=== PATIENT | female | born 1975 | race Caucasian/White ===

== ENCOUNTER → 2020-07-19 10:42 | Outpatient (BNVA) | payer BC, SELFPAY | PROVIDERS: Visit Provider Nurse Practitioner Family | DX: Z20.828 Contact with and (suspected) exposure to other viral communicable diseases (principal) | CPT/HCPCS: 87635 ==

== ENCOUNTER 2022-01-11 15:11 | Emergency (ER) | payer BC, SELFPAY ==
--- NOTE | 2022-01-11 15:13 | CTR_ITS ---
PROCEDURE INFORMATION: Exam: CT Head Without Contrast Exam date and time: 01/11/2022 4:16 PM Age: 47 years old Clinical indication: Pain; Headache; Additional info: Headache, HTN TECHNIQUE: Imaging protocol: Computed tomography of the head without contrast. Radiation optimization: All CT scans at this facility use at least one of these dose optimization techniques: automated exposure control; mA and/or kV adjustment per patient size (includes targeted exams where dose is matched to clinical indication); or iterative reconstruction. COMPARISON: No relevant prior studies available. RADIATION DOSE METRICS: Total DLP (mGy-cm): 1014.49 FINDINGS: Brain: Normal. No hemorrhage. Unremarkable white matter. No mass effect. Cerebral ventricles: No ventriculomegaly. Paranasal sinuses: Visualized sinuses are unremarkable. No fluid levels. Mastoid air cells: Visualized mastoid air cells are well aerated. Bones/joints: Unremarkable. No acute fracture. Soft tissues: Unremarkable. CT/CT head wo con* [id number] IMPRESSION: No acute intracranial abnormality.
--- NOTE | 2022-01-11 15:13 | XRR_ITS ---
PROCEDURE INFORMATION: Exam: XR Chest Exam date and time: 01/11/2022 6:02 PM Age: 47 years old Clinical indication: Chest wall pain; Additional info: Chest pain TECHNIQUE: Imaging protocol: Radiologic exam of the chest. Views: 1 view. COMPARISON: No relevant prior studies available. FINDINGS: Lungs: The lungs are clear. Pleural spaces: Unremarkable. No pleural effusion. No pneumothorax. Heart/Mediastinum: Unremarkable. No cardiomegaly. Bones/joints: Unremarkable. XR/XR chest 1V portable [id number] IMPRESSION: No acute cardiopulmonary abnormality.
[2022-01-11 15:15] VITALS: BP 194/110; PULSE 90; RESP 18; TEMP 36.5; O2SAT 97; BMI 32.9
--- NOTE | 2022-01-11 15:25 | ECG_ITS ---
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 Measurements Intervals [place] Rate: 85 P: 37 RI: 157 QRS: -5 QRSD: 100 T: 36 QT: 411 QTc: 489 Interpretive Statements SINUS RHYTHM INTERPRETATION BASED ON A DEFAULT AGE OF 40 YEARS No previous ECG available for comparison Electronically Signed On 01-11-2022 16:30:57 CDT by Pepe Carpenter M.D. [id number] f
[2022-01-11 17:12] LABS: Basophils # 0.1 10^3/uL (0.0-0.1); Basophils % 0.6 %; Eosinophils # 0.1 10^3/uL (0.0-0.8); Eosinophils % 1.4 %; Hematocrit 39.2 % (37.0-47.0); Hemoglobin 13.1 g/dL (11.5-15.3); Lymphocytes # 2.9 10^3/uL (0.8-4.8); Lymphocytes % 29.8 %; Mean Corpuscular HGB Conc 33.4 g/dL (30.0-36.0); Mean Corpuscular Hemoglobin 28.8 pg (28.0-34.0); Mean Corpuscular Volume 86.2 fl (81-99); Mean Platelet Volume 9.8 fL (7.4-10.4); Monocytes # 0.6 10^3/uL (0.2-0.9); Monocytes % 6.6 %; Neutrophils # 5.98 10^3/uL (1.8-7.7); Neutrophils % 61.4 %; Nucleated Red Blood Cells % 0 %; Platelet Count 290 10^3/cmm (130-400); Red Blood Count 4.55 10^6/uL (4.1-5.3); Red Cell Distribution Width 15.4 % (12.1-15.1); White Blood Count 9.7 10^3/uL (4.0-10.0)
--- NOTE | 2022-01-11 17:28 | ECG_ITS ---
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 Measurements Intervals [place] Rate: 72 P: 37 [place]: 165 QRS: -14 QRSD: 95 T: 27 QT: 423 QTc: 466 Interpretive Statements SINUS RHYTHM Compared to ECG 01/11/2022 15:25:44 No significant changes Electronically Signed On 01-12-2022 21:33:14 CDT by Monica Brown M.D. [id number]
[2022-01-11 17:30] LABS: HCG, Serum Qual Negative (Negative)
[2022-01-11 17:33] LABS: Troponin(5th) Baseline 6 ng/L (0-10)
--- NOTE | 2022-01-11 17:33 | ED_ITS ---
HPI - Chest Pain General: Chief Complaint: Chest Pain Stated Complaint: high bp, chest pain, neck & head pain Time Seen by Provider: 01/11/22 17:30 History of Present Illness: 47-year-old female comes in today with complaints of a headache, elevated blood pressure, and some chest discomfort. Patient reports that she normally has chest discomfort due to a murmur. Patient also reports the headache for the last 3 days with some nausea and visual changes. Patient was found to have elevated blood pressure of 148 systolic at the physician's office and then was referred to the ER for further evaluation. On exam patient has no focal neurodeficits. Patient is alert and oriented. Patient appears nontoxic. Patient has no chronic medical problems. Review of Systems General: Reports: 10 or more systems reviewed and unremarkable except in HPI and below Neuro: Reports: headache(s) PFS ED PFSH: Family History (Updated 01/11/22 @ 13:52 by Eneida Lovelace LPN) Other Family history of premature coronary artery disease Hypertension Social History Smoking and tobacco status: current every day smoker Physical Exam Const: COMMON NORMALS: alert HENMT: COMMON NORMALS: normocephalic HEAD & SCALP: normocephalic Neck/C-Spine: COMMON NORMALS: full ROM CAROTIDS: No bruit Resp: COMMON NORMALS: normal respiratory effort and clear to auscultation bilaterally AUSCULTATION: clear to auscultation bilaterally Cardio: COMMON NORMALS: regular rate and regular rhythm RATE: regular rate RHYTHM: regular rhythm Extremity: COMMON NORMALS: no pedal edema Neuro: SENSORIUM/ORIENTATION: Yes alert Skin: COMMON NORMALS: no rashes or lesions noted GENERAL SKIN EXAM: no rashes or lesions noted Course Vital Signs: Vital signs: Vital Signs Temperature 97.7 F 01/11/22 15:15 Pulse Rate 90 01/11/22 15:15 Respiratory Rate 18 01/11/22 15:15 Blood Pressure 194/110 01/11/22 15:15 Pulse Oximetry 97 01/11/22 15:15 Oxygen Delivery Me thod 01/11/22 15:15 MDM - Chest Pain Medical Decision Making Patient comes in today with complaints of headache, visual changes, and lightheadedness. On exam patient has no focal neural deficits. Blood pressure is elevated at 194 systolic. Heart tones are normal. No edema is noted in the extremities. Abdomen soft nontender. Differential diagnosis includes but not limited to hypertension, migraine headache, carotid stenosis, TIA versus CVA. CT of the head was unremarkable. Carotid auscultation had normal upstroke with no sounds of bruits. Laboratory values were unremarkable. Troponin was negative. I reviewed the exam with patient recommended starting lisinopril 5 mg daily. Patient was given 10 mg of Reglan for her headache. I encourage fluids rest and follow-up with primary care in 1 week for recheck. Lab Data : 01/11/22 16:51 01/11/22 16:[address] 01/11/22 15:13 IMPRESSION: No acute intracranial abnormality. Laboratory Results WBC 9.7 10^3/uL (4.0-10.0) 01/11/22 16:51 RBC 4.55 10^6/uL (4.1-5.3) 01/11/22 16:51 Hgb 13.1 g/dL (11.5-15.3) 01/11/22 16:51 Hct 39.2 % (37.0-47.0) 01/11/22 16:51 MCV 86.2 fl (81-99) 01/11/22 16:51 MCH 28.8 pg (28.0-34.0) 01/11/22 16:51 MCHC 33.4 g/dL (30.0-36.0) 01/11/22 16:51 RDW 15.4 % (12.1-15.1) H 01/11/22 16:51 Plt Count 290 10^3/cmm (130-400) 01/11/22 16:51 MPV 9.8 fL (7.4-10.4) 01/11/22 16:51 Neut % (Auto) 61.4 % 01/11/22 16:51 Lymph % (Auto) 29.8 % 01/11/22 16:51 [place] % (Auto) 6.6 % 01/11/22 16:51 Eos % (Auto) 1.4 % 01/11/22 16:51 Baso % (Auto) 0.6 % 01/11/22 16:51 Neut # (Auto) 5.98 10^3/uL (1.8-7.7) 01/11/22 16:51 Lymph # (Auto) 2.9 10^3/uL (0.8-4.8) 01/11/22 16:51 [place] # (Auto) 0.6 10^3/uL (0.2-0.9) 01/11/22 16:51 Eos # (Auto) 0.1 10^3/uL (0.0-0.8) 01/11/22 16:51 Baso # (Auto) 0.1 10^3/uL (0.0-0.1) 01/11/22 16:51 Nucleated RBC % (auto) 0 % 01/11/22 16:51 Nucleated RBCs # 0.0 /100WBC 01/11/22 16:51 Sodium 139 mmol/L (136-145) 01/11/22 16:51 Potassium 3.8 mmol/L (3.5-5.1) 01/11/22 16:51 Chloride 103 mmol/L (98-107) 01/11/22 16:51 Carbon Dioxide 25 mmol/L (22-29) 01/11/22 16:51 Anion Gap 14.8 (5-19) 01/11/22 16:51 BUN 9 mg/dL (6-20) 01/11/22 16:51 Creatinine 0.8 mg/dL (0.5-0.9) 01/11/22 16:51 GFR Calculation 76.2 mL/min (90-130) L 01/11/22 16:51 Glucose 97 mg/dL (65-115) 01/11/22 16:51 Calculated Osmolality 287 mOsm/kg (285-295) 01/11/22 16:51 Calcium 8.8 mg/dL (8.5-10.5) 01/11/22 16:51 Total Bilirubin 0.3 mg/dL (0.15-1.2) 01/11/22 16:51 AST 12 U/L (0-32) 01/11/22 16:51 ALT 9 U/L (0-33) 01/11/22 16:51 Alkaline Phosphatase 83 IU/L (35-105) 01/11/22 16:51 Troponin T Baseline 6 ng/L (0-10) 01/11/22 16:51 Total Protein 6.9 g/dL (6.6-8.7) 01/11/22 16:51 Albumin 3.8 g/dL (3.5-5.2) 01/11/22 16:51 Globulin 3.1 g/dL (1.3-4.6) 01/11/22 16:51 HCG, Qual Negative (Negative) 01/11/22 16:51 Discharge Plan Discharge Patient Disposition: Home Clinical Impression: Headache Qualifiers: Headache type: unspecified Headache chronicity pattern: acute headache Intractability: not intractable Qualified Code(s): R51.9 - Headache, unspecified HTN (hypertension) Qualifiers: Hypertension type: unspecified Qualified Code(s): I10 - Essential (primary) hypertension Condition: Stable Prescriptions: No Action lisinopril 5 mg tablet 5 mg PO DAILY 30 Days Qty: 30 0RF Discharge Orders: Discharge ED (Routine); Ordered 01/11/22 Ordered By: Nikunj Dumont Discharge Diet: Usual diet Discharge Activity: Increase activity as tolerated Patient Instructions: DASH Eating Plan (ED), Hypertension (ED) Activity Restrictions/Additional Instructions: Start lisinopril 5 mg daily. Eat a healthy diet with plenty of fresh fruits and vegetables and legumes. Try to walk 30 minutes each day for an exercise routine. Limit alcohol consumption to 1 drink a day. Stop smoking cigarettes or the use of nicotine if you use. Drink plenty of water. Follow-up with primary care in 1 week. Return to ER for worsening symptoms or new concerns. Coding Level of Care Code ED Structural Engineer for Adrian Fwd Exam Detailed
[2022-01-11 17:35] LABS: Alanine Aminotransferase 9 U/L (0-33); Albumin Level 3.8 g/dL (3.5-5.2); Alkaline Phosphatase 83 IU/L (35-105); Anion Gap 14.8 (5-19); Aspartate Amino Transferase 12 U/L (0-32); Blood Urea Nitrogen 9 mg/dL (6-20); Calcium 8.8 mg/dL (8.5-10.5); Carbon Dioxide 25 mmol/L (22-29); Chloride 103 mmol/L (98-107); Globulin 3.1 g/dL (1.3-4.6); Glomerular Filtration Rate 76.2 mL/min (90-130); Glucose 97 mg/dL (65-115); Osmolality Calculated 287 mOsm/kg (285-295); Potassium 3.8 mmol/L (3.5-5.1); Sodium 139 mmol/L (136-145); Total Bilirubin 0.3 mg/dL (0.15-1.2); Total Protein 6.9 g/dL (6.6-8.7)
[2022-01-11] MEDS: metoclopramide 5 mg/mL SDV 2 mL 10 MG IM (17:57)
[2022-01-11] MEDS: lisinopril 2.5 mg Tablet 5 MG PO (17:57)
== END 2022-01-11 18:16 | disposition home or self-care (01) ==
PROVIDERS: Emergency Provider Nurse Practitioner Family
DX: R51.9 Headache, unspecified (principal); I10 Essential (primary) hypertension; F17.210 Nicotine dependence, cigarettes, uncomplicated
CPT/HCPCS: 70450; 71045; 80053; 84484; 84703; 85025; 93005; 96372; 99285; J2765

== ENCOUNTER → 2022-02-02 14:46 | Outpatient (BNVA) | payer BC, SELFPAY | PROVIDERS: Visit Provider Family Medicine | DX: I10 Essential (primary) hypertension (principal); M79.89 Other specified soft tissue disorders; Z76.89 Persons encountering health services in other specified circumstances; T78.1XXA Other adverse food reactions, not elsewhere classified, initial encounter; W57.XXXA Bitten or stung by nonvenomous insect and other nonvenomous arthropods, initial encounter; R01.1 Cardiac murmur, unspecified | CPT/HCPCS: 80053; 80061; 84439; 84443; 85025; 86003; 86008 ==

== ENCOUNTER 2022-03-01 13:32 | Outpatient (CLI) | payer BC, SELFPAY ==
--- NOTE | 2022-03-01 13:30 | USCV_ITS ---
Nati Driscoll Age: 47 Gender: F : 1975 Exam Date: 03/01/2022 14:26 Ordering Phys: Iram Pimentel NP Technologist: RAMAKRISHNA Exam Location: [facility] – [place] Indication: DIZZINESS Risk Factors: Previous Vascular Surgery: Right Brachial BP: / Left Brachial BP: / Right Left Velocity (cm/s) Spectral Plaque Velocity (cm/s) Spectral Plaque Syst/Diast Broadening Syst/Diast Broadening 87.00/ 22.50 Prox CCA 111.40/ 29.80 90.10/ 32.60 Mid CCA 88.20 / 26.50 90.10/ 28.70 Distal CCA 75.00 / 26.50 77.80/ 27.30 Prox ICA 83.10 / 29.50 103.40/41.90 Mid ICA 145.50/ 41.90 107.70/38.50 Distal ICA 67.60 / 24.10 104.20 ECA 80.00 1.15 ICA/CCA 1.65 Antegrade Vertebral Antegrade 69.20/ 18.80 cm/s 53.60/ 14.80 cm/s Tri Subclavian Tri 110.3 121.3 0 0 FINDINGS Comparison: none available. No significant elevation of systolic or diastolic velocities. Waveforms are normal. Minimal bilateral, intimal thickening with no elevation of velocity. Antegrade vertebral arteries. CONCLUSIONS Bilateral ICA stenosis less than 50%. Minimal carotid atherosclerosis. Dr. Janet Fajardo DO (Electronically Signed) Final Date: 01 March 2022 14:52 S
== END 2022-03-01 13:33 | disposition home or self-care (01) ==
PROVIDERS: Visit Provider Nurse Practitioner Family
DX: I65.23 Occlusion and stenosis of bilateral carotid arteries (principal)
CPT/HCPCS: 93880

== ENCOUNTER 2022-03-01 13:32 | Outpatient (CLI) | payer BC, SELFPAY ==
--- NOTE | 2022-03-01 14:15 | USCV_ITS ---
Nati Driscoll Age: 47 Gender: F : 1975 Exam Date: 03/01/2022 13:54 Ordering Phys: Da Mcleod DO Technologist: Roberto Garcia Exam Location: [facility] [place] Indication: heart murmur BP: 126 / 88 HR: 67 Rhythm: Sinus Technical Quality: Adequate MEASUREMENTS (Male / Female) Normal Values 2D ECHO LV Diastolic Diameter PLAX 4.4 cm 4.2 - 5.9 / 3.9 - 5.3 cm LV Systolic Diameter PLAX 2.7 cm IVS Diastolic Thickness 0.9 cm 0.6 - 1.0 / 0.6 - 0.9 cm IVS Systolic Thickness 1.1 cm LVPW Diastolic Thickness 1.1 cm 0.6 - 1.0 / 0.6 - 0.9 cm LVPW Systolic Thickness 1.3 cm LVOT Diameter 2.0 cm LV Ejection Fraction 2D Teich 69.9 % LV Ejection Fraction MOD 2C 66.3 % LV Ejection Fraction 2C AL 68.9 % LA Diameter 3.1 cm LA Width 2.8 cm LA Height 3.5 cm RA Width 3.4 cm RA Height 3.3 cm Aorta at Sinotubular Diameter 2.6 cm IVC Diameter 1.7 cm M-MODE Aortic Annulus Diameter 2.8 cm LA Ao Ratio MM 1.1 MV E Point Septal Separation 0.5 cm DOPPLER AV Peak Velocity 103.7 cm/s LVOT Peak Velocity 105.0 cm/s AV Area Cont Eq vti 3.3 cm squared AV Area Cont Eq pk 3.2 cm squared MV Peak Velocity 111.0 cm/s MV Area PHT 4.2 cm squared Mitral E to A Ratio 0.9 MV E' Velocity 47.4 cm/s Mitral E to MV E' Ratio 7.7 Mitral E to LV E' Lateral Ratio 7.3 Mitral E to LV E' Septal Ratio 8.4 TR Peak Velocity 238.0 cm/s TR Peak Gradient 22.7 mmHg TR Mean Velocity 184.6 cm/s TR Mean Gradient 14.9 mmHg TR Velocity Time Integral 63.0 cm Right Atrial Pressure 3.0 mmHg Pulmonary Artery Systolic Pressu 25.7 mmHg PV Peak Velocity 139.0 cm/s RV Acceleration Time 0.1 s RV Ejection Time 0.3 s RV AcT/ET 0.5 FINDINGS Left Ventricle Left ventricle is normal in size. LV systolic function is normal with EF of 55 to 60%. No regional wall motion abnormalities are seen. Grade 1 diastolic dysfunction. Right Ventricle LV is normal in size and function Right Atrium Normal right atrial size Left Atrium Normal in size Mitral Valve Structurally normal mitral valve. Mild mitral regurgitation. Aortic Valve Structurally normal aortic valve. No significant stenosis or regurgitation Tricuspid Valve Mild tricuspid regurgitation. RVSP is 30 to 35 mmHg. Pulmonic Valve Not well-visualized. Mild pulmonic regurgitation Pericardium Normal Aorta Normal in size IVC CONCLUSIONS LV systolic function is normal with EF 55 to 60%. Grade 1 diastolic dysfunction Mild mitral regurgitation Mild tricuspid regurgitation Mild pulmonic regurgitation. No comparison studies are available Donis Goyal MD (Electronically Signed) Final Date: 12 March 2022 16:17 S
== END 2022-03-01 13:33 | disposition home or self-care (01) ==
PROVIDERS: Visit Provider Family Medicine
DX: I65.23 Occlusion and stenosis of bilateral carotid arteries (principal); R01.1 Cardiac murmur, unspecified
CPT/HCPCS: 93306